=== PATIENT | female | born 1960 ===

== ENCOUNTER 2017-03-22 13:34 | Emergency (ER) | payer MEDICAID ==
--- NOTE | 2017-03-22 15:38 | Emergency Department Report ---
ED General Adult HPI - General Chief complaint: Skin Rash Stated complaint: ALLERGIC REACTION Time Seen by Provider: 03/22/17 15:17 Source: patient Mode of arrival: Ambulatory Limitations: No Limitations - History of Present Illness Initial comments: Patient comes into the ER today with complaints of bilateral leg itching and red spots since yesterday. Patient states that she has been around multiple pets and been in 3 different homes over the past few days and concerned that she may have got something from those places. Patient states that she has been bitten by bed bugs before and it looked similar to this in the past. Patient denies any fever, chills, body aches. -: days(s) (1) - Related Data Previous Rx's Medication Instructions Recorded Last Taken Type Permethrin [Elimite] 60 gm TP ONCE #60 cream..g. 03/22/17 Unknown Rx hydrOXYzine PAMOATE [Vistaril] 25 mg PO Q6HR PRN #15 capsule 03/22/17 Unknown Rx Allergies Allergy/AdvReac Type Severity Reaction Status Date / Time codeine AdvReac Dizziness Verified 03/22/17 14:38 Sulfa (Sulfonamide AdvReac Dizziness Verified 03/22/17 14:38 Antibiotics) ED Review of Systems ROS: Stated complaint: ALLERGIC REACTION Other details as noted in HPI Constitutional: denies: chills, fever Eyes: denies: eye pain, eye discharge, vision change ENT: denies: ear pain, throat pain Respiratory: denies: cough, shortness of breath, wheezing Cardiovascular: denies: chest pain, palpitations Endocrine: no symptoms reported Gastrointestinal: denies: abdominal pain, nausea, diarrhea Genitourinary: denies: urgency, dysuria, discharge Musculoskeletal: denies: back pain, joint swelling, arthralgia Skin: rash, pruritus. denies: lesions Neurological: denies: headache, weakness, paresthesias Psychiatric: denies: anxiety, depression Hematological/Lymphatic: denies: easy bleeding, easy bruising ED Past Medical Hx - Past Medical History Hx Hypertension: Yes (pulmonary) Hx of Cancer: Yes (lung) Hx COPD: Yes - Surgical History Additional Surgical History: lung right - Social History Smoking Status: Former Smoker Substance Use Type: Alcohol - Medications Home Medications: Home Medications Medication Instructions Recorded Confirmed Last Taken Type Permethrin [Elimite] 60 gm TP ONCE #60 cream..g. 03/22/17 Unknown Rx hydrOXYzine PAMOATE [Vistaril] 25 mg PO Q6HR PRN #15 capsule 03/22/17 Unknown Rx ED Physical Exam - General Limitations: No Limitations General appearance: alert, in no apparent distress - Head Head exam: Present: atraumatic, normocephalic - Eye Eye exam: Present: normal appearance - ENT ENT exam: Present: mucous membranes moist - Neck Neck exam: Present: normal inspection - Respiratory Respiratory exam: Present: normal lung sounds bilaterally. Absent: respiratory distress - Cardiovascular Cardiovascular Exam: Present: regular rate, normal rhythm. Absent: systolic murmur, diastolic murmur, rubs, gallop - GI/Abdominal GI/Abdominal exam: Present: soft, normal bowel sounds - Extremities Exam Extremities exam: Present: normal inspection - Back Exam Back exam: Present: normal inspection - Neurological Exam Neurological exam: Present: alert, oriented X3 - Psychiatric Psychiatric exam: Present: normal affect, normal mood - Skin Skin exam: Present: warm, dry, intact, normal color, erythema (multiple nonindurated, nontender, erythematous circular lesions noted to bilateral legs consistent with insect bites.), urticaria. Absent: rash ED Course Vital Signs 03/22/17 14:38 Temperature 98.6 F Pulse Rate 72 Respiratory 18 Rate Blood Pressure 147/83 O2 Sat by Pulse 99 Oximetry ED Medical Decision Making - Medical Decision Making Patient is nontoxic and hemodynamically stable. Patient is not experiencing any signs of anaphylaxis. Physical exam is consistent with insect bites with localized reactions. By the presentation, I am concerned for possible bedbugs versus mites. I will start patient on some medication appropriately for her symptoms and have encouraged her to avoid the 3 places that she has stayed at recently. Patient is in agreement with treatment plan patient is stable for discharge. Critical care attestation.: If time is entered above; I have spent that time in minutes in the direct care of this critically ill patient, excluding procedure time. ED Disposition Clinical Impression: Insect bites Disposition: DC-01 TO HOME OR SELFCARE Is pt being admited?: No Does the pt Need Aspirin: No Condition: Good Instructions: Insect Bite or Sting (ED) Prescriptions: hydrOXYzine PAMOATE [Vistaril] 25 mg PO Q6HR PRN #15 capsule PRN Reason: Itching Permethrin [Elimite] 60 gm TP ONCE #60 cream..g. Referrals: [facility] [Outside] - 3-5 Days Time of Disposition: 15:39
[2017-03-22 17:11] VITALS: BP 129/84
[2017-03-23] MEDS ORDERED: ZOLOFT ONE (09:26)
== END 2017-03-22 15:47 | disposition home or self-care (01) ==
LOC: ED 13:34
DX: S80.862A Insect bite (nonvenomous), left lower leg, initial encounter (principal); S80.861A Insect bite (nonvenomous), right lower leg, initial encounter; C34.90 Malignant neoplasm of unspecified part of unspecified bronchus or lung; I27.2 Other secondary pulmonary hypertension; J44.9 Chronic obstructive pulmonary disease, unspecified; Z87.891 Personal history of nicotine dependence; Z88.2 Allergy status to sulfonamides; Z88.5 Allergy status to narcotic agent
CPT/HCPCS: 99282